=== PATIENT | female | born 1945 | race African-American/Black ===

== ENCOUNTER 2024-04-28 15:30 | Emergency (ER) | payer OTHER ==
[~2024-04-28] VITALS: Ht 167.6 cm; Wt 68.0 kg
[2024-04-28 15:32] VITALS: O2SAT 98
[2024-04-28] MEDS: MAGNESIUM 2 G PREMIX 50 ML IV ONE (16:02)
[2024-04-28] MEDS: LACTATED RINGERS 500 ML IV SCH (16:02)
[2024-04-28 16:24] LABS: BASOPHILS % 0.6 % (0.0-2.0); EOSINOPHILS % 2.6 % (0.0-5.0); HEMATOCRIT. 31.3 % (36.0-48.0); HEMOGLOBIN. 10.4 g/dL (12.0-16.0); LYMPHOCYTES % 26.6 % (20.0-50.0); MEAN CORPUSCULAR HGB CONC 33.2 g/dL (31.0-37.0); MEAN CORPUSCULAR VOLUME 93.1 fL (81.0-99.0); MEAN PLATELET VOLUME 8.5 fl (7.4-10.4); MONOCYTES % 10.5 % (2.0-8.0); NEUTROPHILS % 59.7 % (40.0-76.0); PLATELET 225 x1000/uL (130-400); RED BLOOD CELL COUNT 3.36 mill/uL (4.2-5.4); RED CELL DISTRIBUTION WIDTH 13.5 % (11.6-14.6); WHITE BLOOD COUNT 5.6 x1000/uL (4.5-11.0)
[2024-04-28 16:27] LABS: CHLORIDE 111 mEq/L (98-107); POTASSIUM 3.1 mEq/L (3.5-5.1); SODIUM 144 mEq/L (136-145)
[2024-04-28 16:28] LABS: CALCIUM 8.8 mg/dL (8.7-10.4); CARBON DIOXIDE 24 mEq/L (21-32)
[2024-04-28 16:33] LABS: CREATININE 0.8 mg/dL (0.6-1.0); GLUCOSE 110 mg/dL (70-105); UREA NITROGEN BLOOD 10 mg/dL (9-23)
[2024-04-28 16:34] LABS: TROPONIN I HIGH SENSITIVITY 10 ng/L (3.0-34)
[2024-04-28] MEDS: POTASSIUM CHLORIDE 20MEQ/PACKET PO ONE (17:16)
[2024-04-28 18:00] LABS: TROPONIN I HIGH SENSITIVITY 10 ng/L (3.0-34)
[2024-04-28] MEDS ORDERED: MAGNESIUM/ALUMINUM HYDROXIDE/SIMETHICONE 30ML UDC PO PRN (18:00)
[2024-04-28] MEDS ORDERED: ONDANSETRON HCL 4MG/2ML INJ IV PRN (18:00)
[2024-04-28] MEDS ORDERED: ACETAMINOPHEN 325MG TABLET PO PRN ×2 (18:00)
[2024-04-28] MEDS ORDERED: ZOLPIDEM TARTRATE 5MG TABLET PO PRN (18:00)
[2024-04-28] MEDS ORDERED: KETOROLAC 15MG/ML VIAL IV PRN (18:00)
[2024-04-28] MEDS ORDERED: CLONIDINE 0.1MG TABLET PO PRN (18:00)
[2024-04-28] MEDS ORDERED: DOCUSATE SODIUM 100MG CAPSULE PO PRN (18:00)
[2024-04-28] MEDS ORDERED: GUAIFENESIN 200MG/10ML SUGAR FREE UDC PO PRN (18:00)
[2024-04-28] MEDS ORDERED: NITROGLYCERIN 0.4MG TABLET SL SL PRN (18:00)
[2024-04-28] MEDS ORDERED: IPRATROPIUM/ALBUTEROL 0.5-3(2.5)MG/3ML NEB NEB PRN (18:00)
[2024-04-28 18:27] LABS: IRON 87 ug/dL (50-170)
[2024-04-28 18:28] LABS: TRIGLYCERIDE 132 mg/dL (0-150)
[2024-04-28 18:29] LABS: LDL CHOLESTEROL 112 mg/dL (5-100)
[2024-04-28 18:30] LABS: CHOLESTEROL 171 mg/dL (<200); HDL CHOLESTEROL 50 mg/dL (>65); TOTAL IRON BINDING CAPACITY 273 ug/dl (250-425)
[2024-04-28 18:33] LABS: FOLIC ACID (FOLATE) SERUM 18.24 ng/mL (>5.38); VITAMIN B12 SERUM 201 pg/mL (211-911)
[2024-04-28 18:34] LABS: T4 FREE 1.06 ng/dL (0.89-1.76); THYROID STIMULATING HORMONE 1.27 uIU/mL (0.55-4.78)
[2024-04-28 20:55] VITALS: BP 126/59; PULSE 79; RESP 21; TEMP 36.72516; O2SAT 95
[2024-04-28] MEDS ORDERED: FAMOTIDINE 20MG TABLET PO SCH (21:00)
[2024-04-29] MEDS ORDERED: ASPIRIN 81MG EC TABLET PO SCH (09:00)
[2024-04-29] MEDS ORDERED: RIVAROXABAN 10 MG TABLET PO SCH (17:00)
== END 2024-04-28 21:25 | disposition left against medical advice (07) ==
LOC: ER 15:30 → EDBEDREQ 17:23 → ER 21:25
DX: R53.1 Weakness (principal); R55 Syncope and collapse; E87.6 Hypokalemia
CPT/HCPCS: 99291; 96365; 80061; 80048; 82607; 82746; 83036; 84439; 83540; 83550; 84443; 85025; 84484; 36415; 71045; 93005; J3475